=== PATIENT | female | born 2000 | race African-American/Black ===

== ENCOUNTER 2021-01-30 10:17 | Emergency (ER) | payer MEDICAID ==
[~2021-01-30] VITALS: Ht 172.7 cm; Wt 80.0 kg
[2021-01-30] MEDS ORDERED: CEPH500C2 MT (11:26)
[2021-01-30] MEDS ORDERED: IBUP-2028 MT (11:26)
[2021-01-30] MEDS ORDERED: IBUP-2029 MT (11:26)
[2021-01-30] MEDS ORDERED: IBUPROFEN 600MG TABLET PO ONE (11:30)
[2021-01-30 11:40] VITALS: BP 127/65
== END 2021-01-30 11:59 | disposition home or self-care (01) ==
LOC: ER 10:17
DX: S01.511A Laceration without foreign body of lip, initial encounter (principal); W22.8XXA Striking against or struck by other objects, initial encounter; Y93.89 Activity, other specified; Y92.89 Other specified places as the place of occurrence of the external cause; Y99.8 Other external cause status; Z79.899 Other long term (current) drug therapy
CPT/HCPCS: 99283

== ENCOUNTER 2025-05-19 21:09 | Emergency (ER) | payer BC, MEDICAID ==
[~2025-05-19] VITALS: Ht 172.7 cm; Wt 66.7 kg
[~2025-05-19 21:09] MED LIST: CEPH500C2 MT; IBUP-1455 MT; IBUP-2028 MT
[2025-05-19 21:17] VITALS: O2SAT 98
[2025-05-19 21:58] LABS: BASOPHILS % 0.9 % (0.0-2.0); EOSINOPHILS % 0.2 % (0.0-5.0); HEMATOCRIT. 36.6 % (36.0-48.0); HEMOGLOBIN. 11.9 g/dL (12.0-16.0); LYMPHOCYTES % 30.1 % (20.0-50.0); MEAN PLATELET VOLUME 9.8 fl (7.4-10.4); MONOCYTES % 9.3 % (2.0-8.0); NEUTROPHILS % 59.5 % (40.0-76.0); PLATELET 400 x1000/uL (130-400); RED BLOOD CELL COUNT 4.33 mill/uL (4.2-5.4); RED CELL DISTRIBUTION WIDTH 12.8 % (11.6-14.6)
[2025-05-19 22:16] LABS: CREATININE 1.1 mg/dL (0.6-1.0); UREA NITROGEN BLOOD 8 mg/dL (9-23)
[2025-05-19] MEDS: SODIUM CHLORIDE 0.9% 1,000 ML IV ONE (22:16)
[2025-05-19] MEDS: ASPIRIN 325MG EC TABLET PO ONE (22:16)
[2025-05-19] MEDS: LORAZEPAM 2MG/ML UD SYRINGE IV NR (22:17)
[2025-05-19 22:18] LABS: TROPONIN I HIGH SENSITIVITY 17 ng/L (3.0-34)
[2025-05-19 22:53] LABS: HCG SCREEN NEGATIVE
[2025-05-20 01:46] VITALS: BP 120/61; PULSE 112; RESP 14; TEMP 37.1; O2SAT 100
== END 2025-05-20 02:03 | disposition home or self-care (01) ==
LOC: ER 21:09 → CMPBEDREQ 05-20 07:20
DX: R06.02 Shortness of breath (principal); F15.129 Other stimulant abuse with intoxication, unspecified; F12.90 Cannabis use, unspecified, uncomplicated; Z79.899 Other long term (current) drug therapy
CPT/HCPCS: 99285; 96374; 71045; 96361; 80048; 84703; 85025; 84484; 36415; 93005; J2060; J7030